=== PATIENT | female | born 1975 | race Caucasian/White ===

== ENCOUNTER 2016-06-26 05:52 | Day surgery (SDC) | payer OTHER ==
[~2016-06-26] VITALS: Ht 162.6 cm; Wt 64.5 kg
[~2016-06-26 05:52] MED LIST: ALBU8HFA IH; FAMO20 PO; HYDR-3971 PO; MULT-1106 PO
[2016-06-26] MEDS ORDERED: RINGERS SOLUTION,LACTATED 1,000 ML IV ONE ×2 (06:00→06:08)
[2016-06-26] MEDS ORDERED: CeFAZolin 2 GM/DEXTROSE 50 ML IV ONE ×2 (06:09→07:30)
[2016-06-26 06:41] LABS: BASOPHILS % (AUTO) 0.8 % (0.0-2.0); EOSINOPHILS % (AUTO) 2.8 % (1.0-6.0); HEMATOCRIT 33.3 % (36-46); HEMOGLOBIN 10.6 g/dL (12.0-16.0); LYMPHOCYTES # (AUTO) 1.8 K/uL (1.0-4.8); LYMPHOCYTES % (AUTO) 29.9 % (22.0-44.0); MEAN CORPUSCULAR HEMOGLOBIN 25.4 pg (26.0-34.0); MEAN CORPUSCULAR HGB CONC 31.8 G/dL (31.0-37.0); MEAN CORPUSCULAR VOLUME 80 fL (80-100); MONOCYTES # (AUTO) 0.5 K/uL (0.1-1.0); MONOCYTES % (AUTO) 7.9 % (2.0-9.0); NEUTROPHILS # (AUTO) 3.5 K/uL (1.8-7.7); NEUTROPHILS % (AUTO) 58.6 % (40.0-70.0); PLATELET COUNT (AUTO) 365 K/uL (150-450); RED BLOOD CELL COUNT(AUTO) 4.15 MIL/uL (4.00-5.20); RED CELL DISTRIBUTION WIDTH 17.6 % (11.5-14.5)
[2016-06-26] MEDS ORDERED: ONDANSETRON HCL 4 MG/2 ML VIAL ONE (06:45)
[2016-06-26] MEDS ORDERED: BUPIVACAINE HCL/PF 0.5% 30 ML VIAL ONE (07:18)
[2016-06-26] MEDS ORDERED: BUPIVACAINE 0.25%/EPI 1:200,000/PF 10 ML VIAL ONE ×2 (07:18)
[2016-06-26] MEDS ORDERED: RINGERS SOLUTION,LACTATED 1,000 ML IV SCH (07:30)
[2016-06-26] MEDS ORDERED: BUPIVACAINE HCL/PF 0.25% 30 ML VIAL ONE (07:43)
[2016-06-26] MEDS ORDERED: MIDAZOLAM HCL 2 MG/2 ML VIAL IVP ONE (12:00)
[2016-06-26] MEDS ORDERED: FentaNYL CITRATE-PF 100 MCG/2 ML VIAL IVP ONE (12:00)
== END 2016-06-26 09:20 | disposition home or self-care (01) ==
LOC: SURGERY 05:52
PROVIDERS: ATTEND Orthopaedic Surgery
DX: M77.11 Lateral epicondylitis, right elbow (principal); M75.82 Other shoulder lesions, left shoulder; F12.90 Cannabis use, unspecified, uncomplicated; Z79.899 Other long term (current) drug therapy; Z72.89 Other problems related to lifestyle; Z98.890 Other specified postprocedural states
CPT/HCPCS: 0232T; 36415; 84703; 85025; J0690; J2250; J2405; J3010; J3490; J7120

== ENCOUNTER 2020-04-14 13:59 | Inpatient (IN) | payer MEDICAID, OTHER ==
[~2020-04-14] VITALS: Ht 162.6 cm; Wt 50.4 kg
[~2020-04-14 13:59] MED LIST changes: -HYDR-3971 PO; +HYDR-4069 PO
[2020-04-14 15:41] LABS: HEMATOCRIT 25.9 % (36-46); HEMOGLOBIN 8.7 g/dL (12.0-16.0); MEAN CORPUSCULAR HEMOGLOBIN 37.2 pg (26.0-34.0); MEAN CORPUSCULAR HGB CONC 33.8 G/dL (31.0-37.0); MEAN CORPUSCULAR VOLUME 110 fL (80-100); RED BLOOD CELL COUNT(AUTO) 2.35 MIL/uL (4.00-5.20); RED CELL DISTRIBUTION WIDTH 14.6 % (11.5-14.5)
[2020-04-14 15:53] LABS: INR 1.6 (0.9-1.1); PROTHROMBIN TIME 16.7 SEC (9.4-11.6)
[2020-04-14 15:54] LABS: ALANINE AMINOTRANSFERASE 48 U/L (12-78); ALBUMIN 3.1 g/dL (3.4-5.0); ALKALINE PHOSPHATASE 94 U/L (46-116); ASPARTATE AMINOTRANSFERASE 153 U/L (15-37); BILIRUBIN,TOTAL 10.9 mg/dL (0.1-1.0); CALCIUM, TOTAL 8.5 mg/dL (8.8-10.5); CHLORIDE 103 mmol/L (98-107); GLOMERULAR FILTR. RATE CALC > 60 mL/min (>60); GLUCOSE,RANDOM 196 mg/dL (70-110); LIPASE 130 U/L (73-393); POTASSIUM 3.7 mmol/L (3.5-5.1); SODIUM SERUM 139 mmol/L (136-145)
[2020-04-14 15:58] LABS: PLATELET COUNT (AUTO) 172 K/uL (150-450)
[2020-04-14 15:59] LABS: BAND NEUTROPHILS % (MANUAL) 3 % (0-5); LYMPHOCYTES % (MANUAL) 29 % (22-44); MONOCYTES % (MANUAL) 1 % (2-9); SEGMENTED NEUTROPHILS % 67 % (40-70)
[2020-04-14 16:11] LABS: SALICYLATE < 2.8 mg/dL (2.8-20.0)
[2020-04-14 16:14] LABS: ACETAMINOPHEN < 2 mcg/mL (10-30); ANION GAP 11 mmol/L (8-16); CARBON DIOXIDE 25 mmol/L (22-29); HCG,QUANTITATIVE 1 mIU/mL (0-6); UREA NITROGEN, BLOOD 12 mg/dL (7-18)
[2020-04-14 17:35] LABS: SALICYLATE < 2.8 mg/dL (2.8-20.0)
[2020-04-14 17:43] LABS: ACETAMINOPHEN < 2 mcg/mL (10-30)
[2020-04-14 17:46] LABS: MAGNESIUM 1.6 mg/dL (1.80-2.40)
[2020-04-14] MEDS ORDERED: MAG HYDROX/AL HYDROX/SIMETH ES 30 ML SUSPENSION UDCUP PO PRN (18:45)
[2020-04-14] MEDS ORDERED: ACETAMINOPHEN 325 MG TABLET PO PRN (18:45)
[2020-04-14] MEDS ORDERED: LOPERAMIDE HCL 2 MG CAPSULE PO PRN ×2 (18:45)
[2020-04-14] MEDS ORDERED: MAGNESIUM HYDROXIDE SUSPENSION 30 ML UDCUP PO PRN (18:45)
[2020-04-14] MEDS ORDERED: TUBERCULIN, PURIFIED PROTEIN DERIVATIVE 5 TU/0.1 ML SYRINGE ID ONE (18:45)
[2020-04-14] MEDS ORDERED: GuaiFENesin/D-METHORPHAN [SUGAR-FREE] 200-20MG/10 ML SYRUP UDCUP PO PRN (18:45)
[2020-04-14] MEDS ORDERED: CYANOCOBALAMIN 1,000 MCG/ML VIAL IM ONE (18:45)
[2020-04-14] MEDS ORDERED: HydrOXYzine PAMOATE 50 MG CAPSULE PO PRN (18:45)
[2020-04-14] MEDS ORDERED: DIAZEPAM 10 MG TABLET PO ONE (18:45)
[2020-04-14] MEDS ORDERED: QUEtiapine FUMARATE 100 MG TABLET PO PRN (18:45)
[2020-04-14] MEDS ORDERED: ZOLPIDEM TARTRATE 10 MG TABLET PO PRN (18:45)
[2020-04-14] MEDS ORDERED: DIAZEPAM 10 MG TABLET PO PRN (18:45)
[2020-04-14 19:30] LABS: COVID AG,FIA SOURCE NASOPHARYNGEAL
[2020-04-14 19:42] LABS: APPEARANCE,URINE TURBID (CLEAR); GLUCOSE, URINE (UA) NEGATIVE (NEGATIVE); KETONES,URINE 15 mg/dL (NEGATIVE); LEUKOCYTE ESTERASE ,URINE SMALL (NEGATIVE); NITRATE,URINE POSITIVE (NEGATIVE); OCCULT BLOOD,URINE NEGATIVE (NEGATIVE); PH,URINE 5.5 (5.0-8.0); PROTEIN,URINE TRACE (NEGATIVE)
[2020-04-14 19:46] LABS: BILIRUBIN,URINE PRELIM. POSITIVE (NEGATIVE)
[2020-04-14 19:55] LABS: AMPHET/METH SCREEN,URINE NEGATIVE (NEGATIVE); BARBITURATE SCREEN, URINE NEGATIVE (NEGATIVE); BENZODIAZEPINES SCREEN,URINE POSITIVE (NEGATIVE); CANNABINOID SCREEN,URINE NEGATIVE (NEGATIVE); COCAINE SCREEN,URINE NEGATIVE (NEGATIVE); METHADONE SCREEN, URINE NEGATIVE (NEGATIVE); OPIATE SCREEN,URINE NEGATIVE (NEGATIVE)
[2020-04-14 19:58] LABS: PHENCYCLIDINE SCREEN,URINE NEGATIVE (NEGATIVE)
[2020-04-14] MEDS: GABAPENTIN 100 MG CAPSULE PO SCH (20:08)
[2020-04-14] MEDS: THIAMINE 100 MG TABLET PO SCH (20:09)
[2020-04-14] MEDS ORDERED: CEPHALEXIN MONOHYDRATE 500 MG CAPSULE PO ONE (20:15)
[2020-04-14] MEDS ORDERED: MAGNESIUM OXIDE 400 MG TABLET PO ONE (20:15)
[2020-04-14] MEDS ORDERED: LORazepam 1 MG TABLET PO ONE (20:30)
[2020-04-14 20:41] LABS: BACTERIA,URINE Moderate /HPF (None Seen); CALCIUM OXALATE CRYSTALS,UR Few /LPF (None Seen); RBC,URINE 0-2 /HPF (0-2); SQUAMOUS EPITHELIAL CELL,UR Few /LPF (None Seen)
[2020-04-14 22:00] VITALS: BP 150/80
[2020-04-14] MEDS: MIRTAZAPINE 15 MG TABLET PO SCH (22:37)
[2020-04-14 23:00] VITALS: BP 115/62
[2020-04-14] MEDS ORDERED: ALBUTEROL SULFATE HFA 90 MCG/PUFF 8 GM INHALER IH PRN (23:15)
[2020-04-15] VITALS (10 sets, daily range): BP systolic 91–136; BP diastolic 55–88
[2020-04-15] MEDS ORDERED: DIAZEPAM 10 MG TABLET PO PRN (07:00)
[2020-04-15 07:43] LABS: CHOL/HDL RATIO 2.5 (3.9-5.7); CHOLESTEROL 373 mg/dL (131-200); HDL CHOLESTEROL 149 mg/dL (40-60); LDL CHOL (CALC.) 198 mg/dL (0-130); THYROID STIMULATING HORMONE 2.28 uIU/mL (0.36-3.74); TRIGLYCERIDES 131 mg/dL (15-150)
[2020-04-15 08:22] LABS: HEMOGLOBIN A1C < 3.6 % (3.8-5.6)
[2020-04-15] MEDS: FOLIC ACID 1 MG TABLET PO SCH (08:49)
[2020-04-15] MEDS: MULTIVITAMINS WITH MINERALS, THERAPEUTIC TABLET PO SCH (08:49)
[2020-04-15] MEDS: OMEGA-3/DHA/EPA/FISH OIL 1,000 MG CAPSULE PO SCH (08:49)
[2020-04-15] MEDS: DIAZEPAM 10 MG TABLET PO SCH ×4 (08:49→21:12)
[2020-04-15] MEDS: THIAMINE 100 MG TABLET PO SCH ×2 (08:49→17:38)
[2020-04-15] MEDS: NALTREXONE HCL 50 MG TABLET PO SCH (08:50)
[2020-04-15] MEDS: GABAPENTIN 100 MG CAPSULE PO SCH ×4 (08:54→21:12)
[2020-04-15] MEDS ORDERED: NALTREXONE HCL 50 MG TABLET PO SCH (09:00)
[2020-04-15] MEDS: PROMETHAZINE HCL 25 MG TABLET PO PRN ×2 (09:33→15:04)
[2020-04-15] MEDS: NITROFURANTOIN/NITROFURAN MAC 100 MG CAPSULE [MACROBID] PO SCH (17:37)
[2020-04-15] MEDS: MIRTAZAPINE 15 MG TABLET PO SCH (21:12)
[2020-04-15] MEDS: FAMOTIDINE 20 MG TABLET PO SCH (21:12)
[2020-04-16 02:00] VITALS: BP 120/68
[2020-04-16 06:00] VITALS: BP 117/65
[2020-04-16 07:12] LABS: HEMATOCRIT 21.2 % (36-46); HEMOGLOBIN 7.5 g/dL (12.0-16.0); MEAN CORPUSCULAR HEMOGLOBIN 39.4 pg (26.0-34.0); MEAN CORPUSCULAR HGB CONC 35.4 G/dL (31.0-37.0); MEAN CORPUSCULAR VOLUME 112 fL (80-100); PLATELET COUNT (AUTO) 116 K/uL (150-450)
[2020-04-16 07:21] LABS: BAND NEUTROPHILS % (MANUAL) 5 % (0-5); EOSINOPHILS % (MANUAL) 1 % (1-6); LYMPHOCYTES % (MANUAL) 26 % (22-44); MONOCYTES % (MANUAL) 7 % (2-9); SEGMENTED NEUTROPHILS % 61 % (40-70)
[2020-04-16 08:00] VITALS: BP 130/74
[2020-04-16 08:19] LABS: ALANINE AMINOTRANSFERASE 38 U/L (12-78); ALBUMIN 2.8 g/dL (3.4-5.0); ALKALINE PHOSPHATASE 81 U/L (46-116); AMYLASE 38 U/L (25-115); ANION GAP 6 mmol/L (8-16); ASPARTATE AMINOTRANSFERASE 116 U/L (15-37); BILIRUBIN,TOTAL 12.3 mg/dL (0.1-1.0); CALCIUM, TOTAL 8.9 mg/dL (8.8-10.5); CARBON DIOXIDE 28 mmol/L (22-29); CHLORIDE 105 mmol/L (98-107); CREATININE 0.51 mg/dL (0.60-1.30); GLOMERULAR FILTR. RATE CALC > 60 mL/min (>60); GLUCOSE,RANDOM 103 mg/dL (70-110); LIPASE 114 U/L (73-393); POTASSIUM 4.2 mmol/L (3.5-5.1); SODIUM SERUM 139 mmol/L (136-145); TOTAL PROTEIN, SERUM 6.6 g/dL (6.4-8.2); UREA NITROGEN, BLOOD 12 mg/dL (7-18)
[2020-04-16] MEDS: MULTIVITAMINS WITH MINERALS, THERAPEUTIC TABLET PO SCH (08:41)
[2020-04-16] MEDS: THIAMINE 100 MG TABLET PO SCH ×2 (08:41→16:18)
[2020-04-16] MEDS: FOLIC ACID 1 MG TABLET PO SCH (08:41)
[2020-04-16] MEDS: GABAPENTIN 100 MG CAPSULE PO SCH ×4 (08:42→20:04)
[2020-04-16] MEDS: MULTIVITAMINS WITH IRON TABLET PO SCH (08:42)
[2020-04-16] MEDS: NITROFURANTOIN/NITROFURAN MAC 100 MG CAPSULE [MACROBID] PO SCH ×2 (08:43→16:18)
[2020-04-16] MEDS: NALTREXONE HCL 50 MG TABLET PO SCH (08:43)
[2020-04-16] MEDS: PROMETHAZINE HCL 25 MG TABLET PO PRN (08:45)
[2020-04-16] MEDS: OMEGA-3/DHA/EPA/FISH OIL 1,000 MG CAPSULE PO SCH (09:00)
[2020-04-16] MEDS: DIAZEPAM 10 MG TABLET PO SCH ×4 (12:46→20:04)
[2020-04-16 17:00] VITALS: BP 119/81
[2020-04-16] MEDS: FAMOTIDINE 20 MG TABLET PO SCH (20:04)
[2020-04-16] MEDS: MIRTAZAPINE 15 MG TABLET PO SCH (20:05)
[2020-04-16] MEDS ORDERED: OXYMETAZOLINE HCL 0.05% 15 ML NASAL SPRAY NASAL SCH (20:45)
[2020-04-16] MEDS ORDERED: OXYMETAZOLINE HCL 0.05% 15 ML NASAL SPRAY NASAL PRN (21:30)
[2020-04-17 06:18] VITALS: BP 118/70
[2020-04-17] MEDS ORDERED: DIAZEPAM 5 MG TABLET PO PRN (07:00)
[2020-04-17] MEDS: OMEGA-3/DHA/EPA/FISH OIL 1,000 MG CAPSULE PO SCH (09:00)
[2020-04-17] MEDS: THIAMINE 100 MG TABLET PO SCH ×2 (09:00→16:08)
[2020-04-17] MEDS: FOLIC ACID 1 MG TABLET PO SCH (09:00)
[2020-04-17] MEDS: MULTIVITAMINS WITH MINERALS, THERAPEUTIC TABLET PO SCH (09:00)
[2020-04-17] MEDS: GABAPENTIN 100 MG CAPSULE PO SCH ×4 (09:00→20:11)
[2020-04-17] MEDS: NITROFURANTOIN/NITROFURAN MAC 100 MG CAPSULE [MACROBID] PO SCH ×2 (09:00→16:08)
[2020-04-17] MEDS: MULTIVITAMINS WITH IRON TABLET PO SCH (09:00)
[2020-04-17] MEDS: DIAZEPAM 5 MG TABLET PO SCH ×4 (09:00→20:11)
[2020-04-17] MEDS: NALTREXONE HCL 50 MG TABLET PO SCH (09:00)
[2020-04-17 10:23] VITALS: BP 135/79
[2020-04-17 10:47] VITALS: BP 135/79
[2020-04-17 16:18] VITALS: BP 101/77
[2020-04-17 16:56] VITALS: BP 101/77
[2020-04-17] MEDS: MIRTAZAPINE 15 MG TABLET PO SCH (20:11)
[2020-04-17] MEDS: FAMOTIDINE 20 MG TABLET PO SCH (20:11)
[2020-04-18 04:07] VITALS: BP 120/79
[2020-04-18] MEDS ORDERED: DIAZEPAM 5 MG TABLET PO PRN (07:00)
[2020-04-18] MEDS: MULTIVITAMINS WITH MINERALS, THERAPEUTIC TABLET PO SCH ×2 (09:00→11:02)
[2020-04-18] MEDS: GABAPENTIN 100 MG CAPSULE PO SCH ×4 (09:00→17:00)
[2020-04-18] MEDS: MULTIVITAMINS WITH IRON TABLET PO SCH ×2 (09:00→11:02)
[2020-04-18] MEDS: NALTREXONE HCL 50 MG TABLET PO SCH ×2 (09:00→10:59)
[2020-04-18] MEDS: THIAMINE 100 MG TABLET PO SCH ×3 (09:00→17:00)
[2020-04-18] MEDS: FOLIC ACID 1 MG TABLET PO SCH ×2 (09:00→11:02)
[2020-04-18] MEDS: OMEGA-3/DHA/EPA/FISH OIL 1,000 MG CAPSULE PO SCH ×2 (09:00→11:02)
[2020-04-18 09:28] VITALS: BP 112/65
[2020-04-18 10:24] VITALS: BP 112/65
[2020-04-18] MEDS: NITROFURANTOIN/NITROFURAN MAC 100 MG CAPSULE [MACROBID] PO SCH ×2 (10:59→17:20)
[2020-04-18 16:00] VITALS: BP 103/81
== END 2020-04-18 18:30 | disposition left against medical advice (07) | DRG 751 ==
LOC: EMS 13:59 → 3EC 18:42
PROVIDERS: ADMIT Psychiatry & Neurology Psychiatry; ATTEND Psychiatry & Neurology Psychiatry
DX: F33.3 Major depressive disorder, recurrent, severe with psychotic symptoms (principal); F41.9 Anxiety disorder, unspecified; J45.909 Unspecified asthma, uncomplicated; K21.9 Gastro-esophageal reflux disease without esophagitis; K70.9 Alcoholic liver disease, unspecified; R18.8 Other ascites; R45.851 Suicidal ideations; R41.843 Psychomotor deficit; D53.9 Nutritional anemia, unspecified; D72.829 Elevated white blood cell count, unspecified; E78.5 Hyperlipidemia, unspecified; F10.20 Alcohol dependence, uncomplicated; Z20.828 Contact with and (suspected) exposure to other viral communicable diseases; Z53.29 Procedure and treatment not carried out because of patient's decision for other reasons; E80.6 Other disorders of bilirubin metabolism; Z59.0 Homelessness; Z91.14 Patient's other noncompliance with medication regimen; Z79.899 Other long term (current) drug therapy; Z79.51 Long term (current) use of inhaled steroids
CPT/HCPCS: 76700; 80074; 83036; 83735; 84439; 84443; 86592; 87086; 87426; G0480; G0481; J3420; J3535